=== PATIENT | female | born 1985 | race Caucasian/White ===

== ENCOUNTER 2016-07-24 08:25 | Emergency (ER) | payer OTHER ==
[2016-07-24 08:39] VITALS: BP 126/92; PULSE 78; RESP 18; TEMP 98; O2SAT 97
--- NOTE | 2016-07-24 09:00 | UCPHY ---
H & P Patient Type: New Chief Complaint Nursing Narrative: sat fell snowboarding c/o ROSE/Nausea/blurred vision since then - not sure of LOC Time Seen by Provider: 07/24/16 08:45 HPI/ROS: Chief Complaint: Head injury HPI: 31-year-old woman sustained a head injury while snowboarding 4 days ago. Patient states she was helmeted took a fall. Landed backwards. She struck her head. Did not have a loss of consciousness but initially was dazed. Has had some persistent mild headache, general malaise, difficulty concentrating since then. Patient started a new exercise resume yesterday when she was doing it felt that she might pass out. She has not had a syncopal episode. Headaches are getting better with ibuprofen or acetaminophen. At worst it is about a 3/ 10. Some nausea but no vomiting. No fevers or chills. Initially had some vision blurriness after the injury but that has since resolved. No neck pain. No numbness or tingling. ROS: 10 point Review of Systems is negative except as noted in the HPI. PMH: None Medications: None Allergies: None Social History: No smoking, no alcohol, no recreational drug use Family History: non-contributory Physical Exam: Gen: Awake, Alert, No Distress HEENT: Ears: Bilateral TMs are normal Nose: no rhinorrhea Eyes: PERRLA, EOMI Mouth: Moist mucosa Neck: Supple, no JVD Chest: nontender, lungs clear to auscultation Heart: S1, S2 normal, no murmur Abd: Soft, non-tender, no guarding Back: no CVA tenderness, no midline tenderness Ext: no edema, non-tender Skin: no rash Neuro: CN II-XII intact, Sensation grossly intact, Strength 5/5 in bilateral upper and lower extremities, normal finger-nose, normal heel-richter. No ataxia. Negative Romberg. - Personal History LMP (Females 10-55): 8-14 Days Ago Current Tetanus Diphtheria and Acellular Pertussis (TDAP): Yes - Medical/Surgical History Other PMH: denies - Family History Significant Family History: No pertinent family hx - Social History Smoking Status: Never smoked Constitutional: Initial Vital Signs Temperature (C) 36.6 C 07/24/16 08:35 Heart Rate 78 07/24/16 08:35 Respiratory Rate 18 07/24/16 08:35 Blood Pressure 126/92 H 07/24/16 08:35 O2 Sat (%) 97 07/24/16 08:35 O2 Delivery Mode Room Air Allergies/Adverse Reactions: No Known Allergies Allergy (Unverified 07/24/16 08:35) Home Medications: Medication Instructions Recorded NK [No Known Home Meds] 07/24/16 Medical Decision Making ED Course/Re-evaluation: Patient with concussive symptoms. No evidence of expanding intracranial bleed or hematoma. She has a benign exam at this time. She has been reassured and given resources instructions to avoid anything that might cause head injury. She will follow up with primary care physician in about a week if symptoms are not improving. Departure - Departure Disposition: Home, Routine, Self-Care Clinical Impression: Concussion Condition: Good Instructions: Concussion (ED), Post Concussion Syndrome (ED) Additional Instructions: He may alternate ibuprofen and acetaminophen as necessary for aches and pains. Follow up with primary care physician in 3-4 days if symptoms are not improving. Do not engage in any activities which might result in head injury until your symptoms have been gone for at least a week. Referrals: Candy Meza MD [Medical Doctor] - As per Instructions - PQRS PQRS Measurement: NA
== END 2016-07-24 09:07 | disposition home or self-care (01) ==
LOC: CED 08:25
DX: S06.0X0A Concussion without loss of consciousness, initial encounter (principal); V00.311A Fall from snowboard, initial encounter; Y93.23 Activity, snow (alpine) (downhill) skiing, snowboarding, sledding, tobogganing and snow tubing
CPT/HCPCS: 99204-PO; G0463-PO